=== PATIENT | female | born 1955 | race Caucasian/White ===

== ENCOUNTER → 2017-06-20 | Outpatient (CLI) | payer OTHER ==
[~2017-06-20] VITALS: Ht 154.9 cm; Wt 59.0 kg
[~2017-06-20] MED LIST: EYE ITCH RELIEF5 ML LEFT EYE; LATANOPROST2.5 ML BOTH EYES; LO-DOSE ASPIRIN81 M2 PO; MELOXICAM15 MG PO; PERCOCET 5/31 TABLET PO; PROTONIX20 MG PO; VITAMIN D5000 UNI1 PO
== END | disposition home or self-care (01) ==
LOC: AMB 09:34
PROC: 0DB78ZX Excision of Stomach, Pylorus, Via Natural or Artificial Opening Endoscopic, Diagnostic (ICD-10-PCS; principal; 2017-06-20)
DX: K31.89 Other diseases of stomach and duodenum (principal); K44.9 Diaphragmatic hernia without obstruction or gangrene; R10.13 Epigastric pain; K21.9 Gastro-esophageal reflux disease without esophagitis; F17.200 Nicotine dependence, unspecified, uncomplicated; Z88.0 Allergy status to penicillin
CPT/HCPCS: 88305; 88307; 88342 TC; J2250